=== PATIENT | female | born 1995 | race Two or more races ===

== ENCOUNTER 2018-03-28 17:16 | Emergency (ER) | payer OTHER ==
[2018-03-28 17:34] VITALS: BP 123/71
--- NOTE | 2018-03-28 18:19 | UC ---
Respiratory Complaint HPI - HPI Summary HPI Summary: The patient is a 23-year-old female with a one-day history of fever chills sore throat cough nasal congestion. He denies any chest pain or shortness of breath. He denies any nausea vomiting or diarrhea. He has no UTI symptoms. - History of Current Complaint Chief Complaint: UCRespiratory Stated Complaint: COUGH,CONGESTION,SWO[place]EN GLANDS,ST Time Seen by Provider: 03/28/18 18:01 Hx Obtained From: Patient Hx Last Menstrual Period: currently Onset/Duration: Gradual Onset Timing: Constant Severity Initially: Mild Severity Currently: Moderate Pain Intensity: 7 Pain Scale Used: 0-10 Numeric Character: Cough: Nonproductive Aggravating Factors: Nothing Associated Signs And Symptoms: Positive: Fever, Chills, Nasal Congestion - Allergies/Home Medications Allergies/Adverse Reactions: Allergies Allergy/AdvReac Type Severity Reaction Status Date / Time No Known Allergies Allergy Verified 03/28/18 17:34 Home Medications: Home Medications Chestall 10 ml 03/28/18 [History] PMH/Surg Hx/FS Hx/Imm Hx Previously Healthy: Yes - Surgical History Surgical History: None - Family History Known Family History: Positive: Hypertension, Diabetes - Social History Alcohol Use: Weekly Substance Use Type: Marijuana Substance Use Comment - Amount & Last Used: 2 times a week Smoking Status (MU): Never Smoked Tobacco Review of Systems Constitutional: Fever, Chills Skin: Negative Eyes: Negative ENT: Sore Throat, Nasal Discharge, Sinus Congestion Respiratory: Cough Cardiovascular: Negative Gastrointestinal: Negative Genitourinary: Negative Motor: Negative Neurovascular: Negative Musculoskeletal: Myalgia Neurological: Negative Psychological: Negative All Other Systems Reviewed And Are Negative: Yes Physical Exam Triage Information Reviewed: Yes Appearance: Well-Appearing, No Pain Distress, Well-Nourished Vital Signs: Initial Vital Signs Temp 100.6 F 03/28/18 17:30 Pulse 118 03/28/18 17:30 Resp 18 03/28/18 17:30 BP 123/71 03/28/18 17:30 Pulse Ox 98 03/28/18 17:30 Vital Signs Reviewed: Yes Eyes: Positive: Conjunctiva Clear ENT: Positive: Hearing grossly normal, Pharyngeal erythema, Nasal congestion, TMs normal, Tonsillar swelling, Tonsillar exudate, Uvula midline. Negative: TM bulging, TM dull, TM red, Trismus, Muffled voice, Dental tenderness Neck: Positive: Supple, Nontender, Enlarged Nodes @ - ant cerv Respiratory: Positive: Lungs clear, Normal breath sounds, No respiratory distress, No accessory muscle use Cardiovascular: Positive: RRR, No Murmur Musculoskeletal: Positive: ROM Intact, No Edema Neurological: Positive: Alert Psychological Exam: Normal Skin Exam: Normal UC Diagnostic Evaluation - Laboratory O2 Sat by Pulse Oximetry: 98 - normal/not hypoxic Diagnostic Studies Comment: strep (-). influenza (-) - Radiology Radiology Interpretation Completed By: ED Physician Summary of Radiographic Findings: NAD Respiratory Course/Dx - Differential Dx/Diagnosis Provider Diagnoses: acute exudative tonsillitis Discharge - Sign-Out/Discharge Documenting (check all that apply): Patient Departure All imaging exams completed and their final reports reviewed: No - Discharge Plan Condition: Stable Disposition: HOME Patient Education Materials: Tonsillitis (ED) Referrals: [facility] [Primary Care Provider] - - Billing Disposition and Condition Condition: STABLE Disposition: Home
[2018-03-28] MEDS ORDERED: Cephalexin CAP* 500 MG PO ONE (18:33)
--- NOTE | 2018-03-29 08:40 | UC ---
- Progress Note Progress Note: Patient Name: KAE WEINSTEIN Medical Record#: [id number] Ordering Physician: Moisés Rockwell MD Acct.#: [id number] : 1995 Age: 23 Sex: F Location: [facility] Exam Date: 03/28/181811 ADM Status: DEP ER Order Information: CHEST PA & LAT 2 VWS Accession Number: [id number] CPT: 30648 INDICATION: Cough and fever. COMPARISON: There are no relevant prior studies available for comparison. TECHNIQUE: Dual-energy PA and lateral views of the chest were obtained. FINDINGS: The heart is within normal limits in size. Mediastinal and hilar contours appear within normal limits. The lungs are clear. No pleural effusion is present. IMPRESSION: NO EVIDENCE FOR ACTIVE CARDIOPULMONARY DISEASE. R0 Preliminary Imaging Read NO DISCREPANCY <Electronically signed by Ricki Stuart MD in OV> 03/29/18725 Dictated By: Ricki Stuart MD Dictated Date/Time: 03/29/18725 Transcribed Date/Time: 03/29/18724 Copy to: CC:Critical access hospital; Moisés Rockwell MD Imaging - [facility] Imaging - [facility] [address] [place] [address] ph ([phone]) ph ([phone]) ph ([phone]) This report is only to be considered final once signed by the Provider(s) as displayed in the "<Electronically Signed by >" field (s). Absence of a signature indicates the report is in a draft status and still needs to be finalized. In the event this document was created by someone other than the signing Provider, the individual initiating the document will be listed in the "Entered by:" or "Dictated by:" begum. 1 of 1 Discharge - Sign-Out/Discharge Documenting (check all that apply): Post-Discharge Follow Up All imaging exams completed and their final reports reviewed: Yes - Discharge Plan Condition: Stable Disposition: HOME Prescriptions: Cephalexin CAP* [Keflex CAP*] 500 mg PO BID #20 cap Patient Education Materials: Tonsillitis (ED) [facility] Additional Instructions: rest fluids tylenol or advil if needed recheck for new or worsening symptoms the offical XR reading is pending I saw no pneumonia - Billing Disposition and Condition Condition: STABLE Disposition: Home
== END 2018-03-28 18:40 | disposition home or self-care (01) ==
LOC: UCEAST 17:16
DX: J03.90 Acute tonsillitis, unspecified (principal)
CPT/HCPCS: 71046; 87651; 99212; A9270-GY; G0463